=== PATIENT | female | born 1975 | race African-American/Black ===

== ENCOUNTER 2016-07-13 15:30 | Emergency (ER) | payer OTHER ==
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
[2016-07-13 16:38] VITALS: BP 130/60; PULSE 75; RESP 18; TEMP 98.2; O2SAT 98
== END 2016-07-13 16:30 | disposition home or self-care (01) ==
DX: S29.9XXA Unspecified injury of thorax, initial encounter (principal); I10 Essential (primary) hypertension; F17.200 Nicotine dependence, unspecified, uncomplicated; V89.2XXA Person injured in unspecified motor-vehicle accident, traffic, initial encounter; Y92.410 Unspecified street and highway as the place of occurrence of the external cause